=== PATIENT | female | born 1995 | race Hispanic/Latino ===

== ENCOUNTER 2018-02-19 09:01 | Emergency (ER) | payer MEDICAID ==
[2018-02-19 09:31] VITALS: TEMP 98.9
--- NOTE | 2018-02-19 09:36 | ED.PDOC ---
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 Timing/Duration: 1 week Severity: moderate Improving Factors: nothing Worsening Factors: other - see hpi Associated Symptoms: other - see hpi Allergies/Adverse Reactions: Allergies NO KNOWN ALLERGY Allergy (Verified 02/19/18 09:13) Home Medications: Ambulatory Orders Vit W/ Ferrous Fumara [] 1 tab PO DAILY 02/19/18 Review of Systems - Review of Systems Neurological: States: see HPI, other - dizziness All other Systems: Reviewed and Negative, No Change from Baseline Past Medical History (General) - Patient Medical History Hx Seizures: No Hx Asthma: No Hx Cardiac Disorders: No Surgical History: no surgical history - Social History Hx Tobacco Use: No Hx Alcohol Use: No Hx Substance Use: No Hx Depression: No Feels Threatened In Home Enviroment: No - Female History Patient is a Female of Child Bearing Age (10 -59 yrs old): Yes Hx Last Menstrual Period: 08/31/17 Patient : Yes Expected Date of Delivery:: 06/07/18 Hx Gestational Age: 16 Family Medical History - Family History Father Family History: Unknown Mother Family History: No Known Physical Exam - Physical Exam General Appearance: Alert, Comfortable, No apparent distress Eye Exam: bilateral normal Ears, Nose, Throat: hearing grossly normal, normal ENT inspection, normal pharynx Neck: non-tender, full range of motion, supple Respiratory: chest non-tender, lungs clear, normal breath sounds Cardiovascular/Chest: normal peripheral pulses, regular rate, rhythm, no murmur Peripheral Pulses: radial,right: 2+, radial,left: 2+ Gastrointestinal/Abdominal: normal bowel sounds, non tender, soft, other - gravid uterus [id number] Back Exam: no CVA tenderness, no vertebral tenderness Extremity: no pedal edema, no calf tenderness Neurologic: no motor/sensory deficits, alert, oriented x 3 Skin Exam: normal color, warm/dry Lymphatic: no adenopathy Progress - Progress Progress: 02/19/18 09:42 Vital Signs - 8 hr 02/19/18 02/19/18 02/19/18 09:06 09:07 09:08 Temperature 98.9 F Pulse Rate [ 73 66 76 left brachial] Respiratory 20 Rate Blood Pressure 112/66 118/66 108/68 [left brachial] O2 Sat by Pulse 100 Oximetry 02/19/18 09:34 Temperature Pulse Rate [ left brachial] Respiratory 16 Rate Blood Pressure [left brachial] O2 Sat by Pulse Oximetry - Results/Orders Results/Orders: Laboratory Results - last 24 hr 02/19/18 02/19/18 02/19/18 09:44 09:59 09:59 WBC 6.7 RBC 4.09 L Hgb 11.9 L Hct 35.2 L MCV 86.0 MCH 29.1 MCHC 33.8 RDW 14.2 Plt Count 234 MPV 8.4 Absolute Neuts (auto) 5.00 Absolute Lymphs (auto) 1.10 Absolute Monos (auto) 0.50 Absolute Eos (auto) 0.10 Absolute Basos (auto) 0.00 Neutrophils % 74.6 Lymphocytes % 16.2 L Monocytes % 7.5 Eosinophils % 1.2 Basophils % 0.5 Sodium 135 Potassium 3.3 L Chloride 104 Carbon Dioxide 24 Anion Gap 10.3 L BUN 8 Creatinine 0.39 L BUN/Creatinine Ratio 20.5 H Random Glucose 77 Serum Osmolality Not Reportable Calcium 8.6 Urine Color Yellow Urine Appearance Clear Urine pH 6.5 Ur Specific [place] 1.025 Urine Protein Trace Urine Glucose (UA) Negative Urine Ketones Negative Urine Blood Negative Urine Nitrite Negative Urine Bilirubin Negative Urine Urobilinogen 0.2 Ur Leukocyte Esterase Negative Urine RBC 0 Urine WBC 0 Ur Epithelial Cells 5-10 Urine Bacteria Rare Discuss lab result with patient and was given patients instructions regarding Departure - Departure Clinical Impression: Dizziness, 14-20 weeks gestation of Time of Disposition: 10:47 Disposition: Discharge to Home or Self Care Condition: Fair Departure Forms: ED Discharge - Pt. Copy, Patient Portal Self Enrollment Instructions: How to Adapt to Physical Changes During , Nutrition Before and During , - The Fourth Month, - The Fifth Month, and the Flu Referrals: DELPHINE DAVIS MD/OBGYN [Primary Care Provider] - 1-2 Weeks Home Medications: Ambulatory Orders Vit W/ Ferrous Fumara [] 1 tab PO DAILY 02/19/18 Additional Instructions: Continue with all your home medications;Call your OB for follow up; Return to ER as needed
[2018-02-19] MEDS: LACTATED RINGERS 1,000 ML IVS ONE (10:00)
[2018-02-19 11:03] VITALS: BP 102/67; O2SAT 100
== END 2018-02-19 11:04 | disposition home or self-care (01) ==
LOC: ER 09:01
DX: O99.89 Other specified diseases and conditions complicating pregnancy, childbirth and the puerperium (principal); R42 Dizziness and giddiness; Z3A.16 16 weeks gestation of pregnancy
CPT/HCPCS: 36415; 80048; 81001; 85025; J7120

== ENCOUNTER 2018-04-01 19:53 | Emergency (ER) | payer MEDICAID ==
--- NOTE | 2018-04-01 20:10 | ED.PDOC ---
History of Present Illness - General Chief Complaint: GI Problem Stated Complaint: nausea/vomiting Time Seen by Provider: 04/01/18 20:09 Information Source: patient Exam Limitations: no limitations - History of Present Illness Initial Comments: Opal Cueto 22 y/o female came to ER with 1-2 episodes of nausea/vomiting started 3 hours ago but no diarrhea.Denies ill contact,no travel outside [place],no recent antibiotic use. Abdominal Pain Onset Location: other - none Pain Radiation: no radiation Quality: moderate Improving Factors: nothing Worsening Factors: nothing Associated Symptoms: nausea/vomiting Review of Systems - Review of Systems Constitutional: States: no symptoms reported EENTM: States: no symptoms reported Respiratory: States: no symptoms reported Cardiology: States: no symptoms reported Gastrointestinal/Abdominal: States: see HPI Genitourinary: States: no symptoms reported Skin: States: no symptoms reported Neurological: States: no symptoms reported Past Medical History (General) - Patient Medical History Hx Seizures: No Hx Stroke: No Hx Asthma: No Hx Cardiac Disorders: No Hx Diabetes: No - Vaccination History Immunizations Up to Date: Yes - Social History Hx Tobacco Use: No Hx Alcohol Use: No Hx Substance Use: No Hx Depression: No - Female History Hx Last Menstrual Period: 08/31/17 Patient : Yes Expected Date of Delivery:: 06/07/18 Hx Gestational Age: 16 Family Medical History - Family History Mother Family History: No Known Father Family History: Unknown Physical Exam - Physical Exam General Appearance: Alert, Comfortable, No apparent distress Eyes, Ears, Nose, Throat Exam: normal ENT inspection, pharynx normal Neck: non-tender, supple, normal inspection Respiratory: lungs clear, normal breath sounds, no respiratory distress Cardiovascular/Chest: normal peripheral pulses, regular rate, rhythm, no murmur Peripheral Pulses: No deficit Gastrointestinal/Abdominal: normal bowel sounds, non tender, soft, other - gravid uterus;FHR-147/min Back Exam: no CVA tenderness, no vertebral tenderness Extremity: no pedal edema, no calf tenderness Neurologic: alert, oriented x 3 Skin Exam: normal color, warm/dry Progress - Progress Progress: 04/01/18 20:31 Vital Signs - 8 hr 04/01/18 20:08 Temperature 98 F Pulse Rate [ 66 monitor] Respiratory 20 Rate Blood Pressure 126/66 [la] O2 Sat by Pulse 100 Oximetry - Results/Orders Results/Orders: 04/01/18 20:11 IV Care:Saline Lock per Protoc QSHIFT URINALYSIS Stat Laboratory Results - last 24 hr 04/01/18 04/01/18 20:31 20:31 WBC 9.9 RBC 4.27 Hgb 12.5 Hct 37.2 MCV 87.1 MCH 29.4 MCHC 33.8 RDW 13.7 Plt Count 248 MPV 8.7 Absolute Neuts (auto) 8.40 H Absolute Lymphs (auto) 0.80 L Absolute Monos (auto) 0.70 Absolute Eos (auto) 0.00 Absolute Basos (auto) 0.00 Neutrophils % 84.3 H Lymphocytes % 8.3 L Monocytes % 6.6 Eosinophils % 0.5 L Basophils % 0.3 Sodium 136 Potassium 3.5 L Chloride 104 Carbon Dioxide 22 Anion Gap 13.5 BUN 8 Creatinine < 0.40 L BUN/Creatinine Ratio 20.0 Random Glucose 77 Serum Osmolality 269.1 L Calcium 8.7 Total Bilirubin 0.6 AST 16 ALT 14 Alkaline Phosphatase 92 Serum Total Protein 7.5 Albumin 3.6 Globulin 3.9 H Albumin/Globulin Ratio 0.9 L Lipase 22 Departure - Departure Clinical Impression: Nausea & vomiting Qualifiers: Vomiting type: unspecified Vomiting Intractability: non-intractable Qualified Code(s): R11.2 - Nausea with vomiting, unspecified Time of Disposition: 21:23 Disposition: Discharge to Home or Self Care Condition: Good Departure Forms: ED Discharge - Pt. Copy, Patient Portal Self Enrollment Instructions: [place] Diet, Viral Gastroenteritis, Viral Gastroenteritis, Adult (DC) Diet: bland diet - until better, other - Avoid greasy /spicy foods until better Referrals: DELPHINE DAIVS MD/OBGYN [Primary Care Provider] - 1-2 Weeks Prescriptions: Ondansetron [Zofran Odt] 4 mg PO Q8HRS PRN #10 tab PRN Reason: Nausea/Vomiting Home Medications: Ambulatory Orders Ondansetron [Zofran Odt] 4 mg PO Q8HRS PRN #10 tab 04/01/18 Additional Instructions: Return to ER as needed;Take Zofran 8mg-1/2 tablet 3 x a day for nausea/vomiting
[2018-04-01] MEDS ORDERED: LACTATED RINGERS 1,000 ML IVS ONE (20:11)
[2018-04-01 20:14] VITALS: TEMP 98
[2018-04-01] MEDS ORDERED: ONDANSETRON INJ 4 MG/2 ML VIAL IV ONE (20:15)
[2018-04-01] MEDS ORDERED: ONDANSETRON ODT (ER DISP) 8 MG TAB PO ONE (21:22)
[2018-04-01 21:43] VITALS: BP 117/63; O2SAT 99
== END 2018-04-01 21:43 | disposition home or self-care (01) ==
LOC: ER 19:53
DX: O21.0 Mild hyperemesis gravidarum (principal); Z3A.00 Weeks of gestation of pregnancy not specified
CPT/HCPCS: 36415; 80053; 81001; 83690; 85025; 87804; J2405; J7120